=== PATIENT | male | born 1980 | race Caucasian/White ===

== ENCOUNTER 2018-05-12 17:16 | Emergency (ER) | payer BC ==
--- NOTE | 2018-05-12 19:06 | EDM.PDOC ---
ED HPI GENERAL MEDICAL PROBLEM - General Chief Complaint: Fever Stated Complaint: FEVER Time Seen by Provider: 05/12/18 18:47 Source of Information: Reports: Patient History Limitations: Reports: No Limitations - History of Present Illness INITIAL COMMENTS - FREE TEXT/NARRATIVE: Patient is a 38-year-old male who presents ED complaining of fever, chills, poor appetite, cough, that started approximately one week ago. Patient return [facility] from [facility]. States his had similar symptoms but resolved over a few days. Patient is concerned he has influenza or possible pneumonia. He states he cannot take a deep breath because he wants cough. Cough has been nonproductive. He has no history of pneumonia. He did not receive the flu vaccination. States while snorkeling he did accidentally inhale some saltwater causing him to cough. He's had a slight headache with no nuchal rigidity. Generalized body aches. No sore throat, no sinus congestion, no abdominal pain, no diarrhea, no dysuria, no chest pain, no rash present. History and currently taking no medications. Surgical history none. Smoking history none. Alcohol use Little. Recreational drug use none. He has no history of DVT/PE. Treatments [employer]: Reports: Acetaminophen, NSAIDS Abdomen Pain Score (Numeric/FACES): 3 - Related Data Allergies Allergy/AdvReac Type Severity Reaction Status Date / Time No Known Allergies Allergy Verified 05/12/18 17:28 Home Meds: Home Meds . [No Known Home Meds] 05/12/18 [History] Past Medical History - Past Health History Medical/Surgical History: Denies Medical/Surgical History Social & Family History - Tobacco Use Smoking Status *Q: Never Smoker ED ROS GENERAL - Review of Systems Review Of Systems: ROS reveals no pertinent complaints other than HPI. ED EXAM, GENERAL - Physical Exam Exam: See Below Exam Limited By: No Limitations General Appearance: Alert, WD/WN, No Apparent Distress Eye Exam: Bilateral Eye: Normal Inspection, PERRL Ears: Normal External Exam, Normal Canal, Hearing Grossly Normal, Normal TMs Nose: Normal Inspection Throat/Mouth: Normal Inspection, Normal Oropharynx, Normal Voice, No Airway Compromise Head: Atraumatic, Normocephalic Neck: Normal Inspection, Supple, Non-Tender, Full Range of Motion. No: Lymphadenopathy (L), Lymphadenopathy (R) Respiratory/Chest: No Respiratory Distress, Lungs Clear, Normal Breath Sounds, No Accessory Muscle Use, Chest Non-Tender Cardiovascular: Normal Peripheral Pulses, Regular Rate, Rhythm, No Murmur Peripheral Pulses: 2+: Radial (R) GI/Abdominal: Normal Bowel Sounds, Soft, Non-Tender, No Organomegaly, No Distention Back Exam: Normal Inspection Extremities: Normal Range of Motion, Non-Tender, No Pedal Edema Neurological: Alert, Oriented, CN II-XII Intact, Normal Cognition, No Motor/ Sensory Deficits Psychiatric: Normal Affect, Normal Mood Skin Exam: Warm, Dry, Intact, Normal Color Course - Vital Signs Last Recorded V/S: Last Vital Signs Temp 101.5 F H 05/12/18 21:51 Pulse 110 H 05/12/18 21:51 Resp 18 05/12/18 21:51 BP 122/74 05/12/18 21:51 Pulse Ox 95 05/12/18 21:51 - Orders/Labs/Meds Labs: Laboratory Tests 05/12/18 05/12/18 05/12/18 Range/Units 19:25 19:25 20:45 WBC 9.80 H (4.23-9.07) K/mm3 RBC 4.68 (4.63-6.08) M/mm3 Hgb 13.8 (13.7-17.5) gm/L Hct 40.2 (40.1-51.0) % MCV 85.9 (79.0-92.2) fl MCH 29.5 (25.7-32.2) pg MCHC 34.3 (32.2-35.5) g/dl RDW Std Deviation 40.7 (35.1-43.9) fL Plt Count 282 (163-337) K/mm3 MPV 9.0 L (9.4-12.3) fl Neutrophils % (Manual) 79 H (40-60) % Band Neutrophils % 1 (0-10) % Lymphocytes % (Manual) 13 L (20-40) % Atypical Lymphs % 0 % Monocytes % (Manual) 7 (2-10) % Eosinophils % (Manual) 0 L (0.8-7.0) % Basophils % (Manual) 0 L (0.2-1.2) Platelet Estimate Adequate RBC Morph Comment Normal Sodium 137 (136-145) mEq/L Potassium 4.0 (3.5-5.1) mEq/L Chloride 100 (98-107) mEq/L Carbon Dioxide 28 (21-32) mEq/L Anion Gap 13.0 (5-15) BUN 9 (7-18) mg/dL Creatinine 1.1 (0.7-1.3) mg/dL Est Cr Clr Drug Dosing 101.23 mL/min Estimated GFR (MDRD) > 60 (>60) mL/min BUN/Creatinine Ratio 8.2 L (14-18) Glucose 101 (74-106) mg/dL Lactic Acid 0.8 (0.4-2.0) mmol/L Calcium 9.3 (8.5-10.1) mg/dL Total Bilirubin 0.8 (0.2-1.0) mg/dL AST 36 (15-37) U/L ALT 46 (16-63) U/L Alkaline Phosphatase 86 (46-116) U/L C-Reactive Protein 32.8 H* (<1.0) mg/dL Total Protein 8.3 H (6.4-8.2) g/dl Albumin 3.2 L (3.4-5.0) g/dl Globulin 5.1 gm/dL Albumin/Globulin Ratio 0.6 L (1-2) Meds: Medications Discontinued Medications Generic Name Dose Route Start Last Admin Trade Name Freq PRN Reason Stop Dose Admin Acetaminophen 975 mg 05/12/18 20:32 05/12/18 20:42 Tylenol PO 05/12/18 20:33 975 mg NOW ONE Administration Ceftriaxone Sodium 2 gm 05/12/18 20:38 05/12/18 20:52 Rocephin IVPUSH 05/12/18 20:39 Not Given ONETIME ONE Ceftriaxone Sodium 1 gm/ 0 gm 05/12/18 20:45 Lidocaine HCl 2.1 ml IM Q24H REBEKAH Doxycycline Hyclate 100 mg 05/12/18 20:23 05/12/18 20:44 Vibramycin PO 05/12/18 20:24 100 mg ONETIME ONE Administration Sodium Chloride 1,000 mls @ 999 mls/hr 05/12/18 20:37 05/12/18 20:52 Normal Saline IV 05/12/18 21:37 999 mls/hr ONETIME ONE Administration Sodium Chloride 1,000 mls @ 999 mls/hr 05/12/18 20:37 05/12/18 21:53 Normal Saline IV 05/12/18 21:37 999 mls/hr .BOLUS ONE Administration Ceftriaxone Sodium 2 gm/ 100 mls @ 200 mls/hr 05/12/18 21:00 05/12/18 20:59 Sodium Chloride IV 200 mls/hr Q24H REBEKAH Administration Promethazine HCl/Codeine 10 ml 05/13/18 20:51 05/12/18 21:12 Phenergan With Codeine PO 05/13/18 20:52 10 ml ONETIME ONE Administration Promethazine HCl/Codeine Confirm 05/12/18 21:09 05/12/18 21:21 Phenergan With Codeine Administered 05/12/18 21:10 Not Given Dose 5 ml .ROUTE .STK-MED ONE Promethazine HCl/Codeine Confirm 05/12/18 21:11 05/12/18 21:21 Phenergan With Codeine Administered 05/12/18 21:12 Not Given Dose 5 ml .ROUTE .STK-MED ONE Sodium Chloride 10 ml 05/12/18 20:37 05/12/18 20:52 Saline Flush FLUSH 10 ml ASDIRECTED PRN Administration Keep Vein Open - Re-Assessments/Exams Free Text/Narrative Re-Assessment/Exam: Vital signs on examination: BP 139/85, HR 98, RR 16, O2 Sats 98% on room air. Suspect patient has influenza. He has 4 kids at home that do not have any symptoms at this time. I will perform influenza screen along with basic labs including CBC, chem 14, CRP, and also chest x-ray two-view to rule out pneumonia. 05/12/18 19:42 X-ray of the chest reviewed with Dr. Romero with no acute findings noted. Final interpretation is pending. Labs reviewed: Influenza screen negative. CBC did not indicate any concerning findings. His chemistry panel was essentially normal. CRP became was elevated at 32.8. I initially suspected this is more likely viral in etiology but with CRP indicating elevation greater than 10 suspect this is bacterial in origin. Again with review of the chest x-ray it appears to be early onset of right middle lobar pneumonia. Again final interpretation is pending. 2028 reassessment, I discussed the plan with the patient. Patient states he is complaining of rigors. Temperature is 102.3 F. I have ordered rocephin 1 gram IV and tylenol 975mg PO. Blood cultures and lactic acid have been ordered. Will see if temperature resolves prior to discharge. Lactic acid wnl. Per CDC patient is not up-to-date with her routine vaccinations required for travel to his destination. Illnesses to be concerned about hepatitis, typhoid, and also seek a virus. All all illnesses have the generalized flu symptoms minus the upper respiratory. Suspect patient does have a viral versus early pneumonia. Thus patient will be advised to follow-up with PCP this week if symptoms are not improving. He was also encouraged to return back to the ED if he should experience any new or worsening symptoms. 2144 Reassessment, patient states he is feeling better. Temp 101.6. HR 109. He is ready to be discharged home. Departure - Departure Time of Disposition: 20:27 Disposition: Home, Self-Care 01 Condition: Good Clinical Impression: Upper respiratory infection, acute - Discharge Information Instructions: Cough, Adult, [id number], Upper Respiratory Infection, Adult, [id number] Referrals: PCP,None [Primary Care Provider] - Forms: ED Department Discharge, ED Return to Work/School Form Additional Instructions: Take Mucinex 600 mg 1 tablet twice a day for duration of symptoms. May utilize Proventil inhaler one to 2 puffs every 4 hours as needed for cough, wheezing, shortness of breath. Utilize the Phenergan with codeine cough syrup for cough as directed. Do not drive while taking this cough syrup. In addition I will place you on doxycycline 100 mg twice a day for 10 days. Please follow up with her PCP if symptoms persist and are not resolving over the next 3-5 days. Please return back to ED if you develop any new or worsening symptoms. May return to work once fever free for 24 hours
[2018-05-12] MEDS ORDERED: Doxycycline 100 MG Cap PO ONE (20:23)
[2018-05-12] MEDS ORDERED: Acetaminophen 325 MG Tab PO ONE (20:32)
[2018-05-12] MEDS ORDERED: Sodium Chloride 0.9% 1,000 ML IV ONE ×2 (20:37)
[2018-05-12] MEDS ORDERED: Sodium Chloride 0.9% 10 ML Syringe FLUSH PRN (20:37)
[2018-05-12] MEDS ORDERED: cefTRIAXone 2 GM Vial IVPUSH ONE (20:38)
[2018-05-12] MEDS ORDERED: cefTRIAXone 1 GM, Lidocaine 1% 2.1 ML IM SCH ×2 (20:45)
[2018-05-12] MEDS ORDERED: cefTRIAXone 2 GM in Sodium Chloride 0.9% 100 ML IV SCH (21:00)
[2018-05-12] MEDS ORDERED: Codeine/Promethazine 10-6.25 MG/5 ML Syrup 5 ML UD Cup ONE ×2 (21:09→21:11)
--- NOTE | 2018-05-13 07:22 | CR ---
Chest: Two views of the chest were obtained. Comparison: No previous chest x-ray. Diffuse increased lung markings are seen on both sides of the chest with mild focal density within the right lung base. Findings are felt compatible with diffuse bronchitis as well as probable early right lower lobe pneumonia. Heart size and mediastinum are normal. Bony structures are unremarkable. Impression: 1. Findings felt compatible with bilateral bronchitis and early right lower lobe pneumonia. Diagnostic code #3
[2018-05-13] MEDS ORDERED: Codeine/Promethazine 10-6.25 MG/5 ML Syrup 5 ML UD Cup PO ONE (20:51)
== END 2018-05-12 22:58 | disposition home or self-care (01) ==
LOC: JD.ED 17:16
DX: J06.9 Acute upper respiratory infection, unspecified (principal)
CPT/HCPCS: 36415; 71046; 80053; 83605; 85007; 85027; 86140; 87040; 87804; 96361; 96365; 99284; A9270; J0696; J7030; J7040